=== PATIENT | male | born 1980 | race Two or more races ===

== ENCOUNTER 2017-05-10 16:15 | Emergency (ER) | payer MEDICARE, MEDICAID ==
[~2017-05-10] VITALS: Ht 182.9 cm; Wt 107.0 kg
[~2017-05-10 16:15] MED LIST: 5HTP PO; ADV50500 IH; ALBU8.5H4 IH; CYCL-1 PO; HYDR-569 PO
[2017-05-10 17:15] LABS: BASOPHILS % (AUTO) 0.3 % (0-1); EOSINOPHILS # (AUTO) 0.5 X10'3 (0-0.9); EOSINOPHILS % (AUTO) 5.9 % (0-6); HEMATOCRIT 41.4 % (42.0-52.0); HEMOGLOBIN 14.1 g/dl (14.0-17.9); LYMPHOCYTES # (AUTO) 3.1 X10'3 (1.1-4.8); LYMPHOCYTES % (AUTO) 40.6 % (21-51); MEAN CORPUSCULAR HEMOGLOBIN 30.5 PG (27.0-31.0); MEAN CORPUSCULAR VOLUME 89.9 FL (78-98); MEAN PLATELET VOLUME 7.9 FL (7.4-10.4); MONOCYTES # (AUTO) 0.8 X10'3 (0-0.9); MONOCYTES % (AUTO) 10.5 % (2-12); NEUTROPHILS # (AUTO) 3.3 X10'3 (1.8-7.7); NEUTROPHILS % (AUTO) 42.7 % (42-75); PLATELET COUNT 269 X10'3 (140-440); RED BLOOD COUNT 4.61 X10'6 (4.70-6.10); RED CELL DISTRIBUTION WIDTH 14.1 % (11.5-14.5); WHITE BLOOD COUNT 7.7 X10'3 (4.5-11.0)
[2017-05-10] MEDS ORDERED: DIVA500T7 PO (17:22)
[2017-05-10] MEDS ORDERED: GABA-532 PO (17:22)
[2017-05-10] MEDS ORDERED: LEVO100T9 PO (17:22)
[2017-05-10] MEDS ORDERED: CHOL200013 PO (17:22)
[2017-05-10] MEDS ORDERED: ESCI10TA54 PO (17:22)
[2017-05-10 17:29] LABS: ALANINE AMINOTRANSFERASE 45 U/L (12-78); ALBUMIN 3.7 G/DL (3.4-5.0); ALBUMIN/GLOBULIN RATIO 1.1 (1.1-1.5); ALKALINE PHOSPHATASE 66 IU/L (46-116); ANION GAP 8 (8-16); ASPARTATE AMINO TRANSFERASE 10 U/L (10-37); BILIRUBIN,TOTAL 0.3 MG/DL (0.1-1.0); BLOOD UREA NITROGEN 18 MG/DL (7-18); BUN/CREATININE RATIO 13.3 (5.4-32.0); CALCIUM 8.6 MG/DL (8.5-10.1); CHLORIDE 107 MMOL/L (99-107); CREATININE 1.35 MG/DL (0.60-1.10); GLUCOSE 101 MG/DL (70-104); SODIUM 143 MMOL/L (135-145); TOTAL CARBON DIOXIDE 28.2 MMOL/L (24-32); TOTAL PROTEIN 7.1 G/DL (6.4-8.2); eGFR 59 ML/MIN
[2017-05-10 17:34] LABS: CLARITY,URINE Clear (Clear); COLOR,URINE Yellow (Yellow); GLUCOSE, URINE Negative (Neg); KETONES,URINE Negative (Neg); LEUKOCYTE ESTERASE ,URINE Negative (Neg); NITRITES, URINE Negative (Neg); OCCULT BLOOD,URINE Negative (Neg); PH,URINE 5.5 (4.8-8.0); PROTEIN,URINE Negative (Neg)
[2017-05-10 17:39] LABS: ETHANOL < 0.010 GM/DL (0.0-0.010)
[2017-05-10 17:42] LABS: UA COLLECTION TYPE CLN CATCH MIDSTREAM
[2017-05-10 17:44] LABS: URINE AMPHETAMINE SCREEN NEGATIVE (Neg); URINE BARBITUATE SCREEN NEGATIVE (Neg); URINE BENZODIAZEPINES SCREEN NEGATIVE (Neg); URINE CANNABINOID SCREEN NEGATIVE (Neg); URINE COCAINE SCREEN NEGATIVE (Neg); URINE METHADONE SCREEN NEGATIVE (Neg); URINE OPIATE SCREEN NEGATIVE (Neg); URINE PHENCYCLIDINE SCREEN NEGATIVE (Neg)
[2017-05-10 17:47] LABS: ACETAMINOPHEN < 2.0 UG/ML (10-30)
[2017-05-10 17:51] VITALS: BP 122/73
== END 2017-05-10 21:59 ==
LOC: ER 16:15
DX: R45.851 Suicidal ideations (principal); E03.9 Hypothyroidism, unspecified; R10.84 Generalized abdominal pain; F31.9 Bipolar disorder, unspecified; J45.909 Unspecified asthma, uncomplicated; Z79.899 Other long term (current) drug therapy; Z88.1 Allergy status to other antibiotic agents; Z91.012 Allergy to eggs; Z91.018 Allergy to other foods
CPT/HCPCS: 36415; 80053; 80305; 80320; 80329; 81003; 84443; 85025; 99285

== ENCOUNTER 2017-05-10 20:40 | Inpatient (IN) | payer MEDICARE, MEDICAID ==
[~2017-05-10] VITALS: Ht 182.9 cm; Wt 104.9 kg
[~2017-05-10 20:40] MED LIST changes: +CHOL200013 PO; +DIVA500T7 PO; +ESCI10TA54 PO; +GABA-532 PO; +LEVO100T9 PO
[2017-05-10] MEDS ORDERED: divalproex sodium 500mg tablet.DR PO ONE (22:15)
[2017-05-10] MEDS ORDERED: gabapentin 300mg capsule PO ONE (22:15)
[2017-05-10] MEDS ORDERED: citalopram 20mg tablet PO ONE (22:15)
[2017-05-10 22:20] VITALS: BP 110/70
[2017-05-10] MEDS ORDERED: vitamin D (cholecalciferol) 1,000 unit tablet PO ONE (22:20)
[2017-05-10] MEDS: albuterol 2.5 MG/3 ML nebule NEB PRN (23:42)
[2017-05-11] MEDS ORDERED: acetaminophen 325mg tablet PO PRN (02:05)
[2017-05-11] MEDS ORDERED: mag hydrox/Alum hydrox/simeth 30ml oral suspension PO PRN (02:05)
[2017-05-11] MEDS ORDERED: magnesium hydroxide 30ml (MOM) UD suspension PO PRN (02:10)
[2017-05-11 08:00] VITALS: BP 93/54
[2017-05-11] MEDS: levoTHYROXINE 100mcg tablet PO SCH (08:04)
[2017-05-11] MEDS: gabapentin 300mg capsule PO SCH ×3 (08:05→20:44)
[2017-05-11] MEDS: vitamin D (cholecalciferol) 1,000 unit tablet PO SCH (08:05)
[2017-05-11] MEDS: citalopram 20mg tablet PO SCH (08:05)
[2017-05-11 09:14] LABS: CHOL/HDL RATIO 3.1 (0.00-4.99); CHOLESTEROL 157 MG/DL (0-200); HDL CHOLESTEROL 51 MG/DL (35-60); LDL CHOLESTEROL 96 MG/DL (50-100); TRIGLYCERIDES 99 MG/DL (20-135)
[2017-05-11 09:17] LABS: HEMOGLOBIN A1C 5.9 % (4.5-6.2)
[2017-05-11 20:00] VITALS: BP 113/75
[2017-05-11 20:50] LABS: BASOPHILS % (AUTO) 0.4 % (0-1); EOSINOPHILS # (AUTO) 0.4 X10'3 (0-0.9); HEMATOCRIT 41.4 % (42.0-52.0); HEMOGLOBIN 14.2 g/dl (14.0-17.9); LYMPHOCYTES # (AUTO) 2.6 X10'3 (1.1-4.8); LYMPHOCYTES % (AUTO) 35.3 % (21-51); MEAN CORPUSCULAR HEMOGLOBIN 30.9 PG (27.0-31.0); MEAN CORPUSCULAR HGB CONC 34.3 % (33.0-36.5); MEAN PLATELET VOLUME 8.2 FL (7.4-10.4); MONOCYTES # (AUTO) 0.7 X10'3 (0-0.9); MONOCYTES % (AUTO) 9.6 % (2-12); NEUTROPHILS # (AUTO) 3.7 X10'3 (1.8-7.7); NEUTROPHILS % (AUTO) 49.7 % (42-75); PLATELET COUNT 252 X10'3 (140-440); RED CELL DISTRIBUTION WIDTH 13.5 % (11.5-14.5); WHITE BLOOD COUNT 7.4 X10'3 (4.5-11.0)
[2017-05-11] MEDS ORDERED: divalproex sodium 500mg tablet.DR PO SCH (21:00)
[2017-05-11 21:08] LABS: ALANINE AMINOTRANSFERASE 51 U/L (12-78); ALBUMIN 3.8 G/DL (3.4-5.0); ALBUMIN/GLOBULIN RATIO 1.1 (1.1-1.5); ALKALINE PHOSPHATASE 58 IU/L (46-116); ANION GAP 8 (8-16); ASPARTATE AMINO TRANSFERASE 22 U/L (10-37); BILIRUBIN,TOTAL 0.3 MG/DL (0.1-1.0); BLOOD UREA NITROGEN 20 MG/DL (7-18); BUN/CREATININE RATIO 13.4 (5.4-32.0); CALCIUM 9.6 MG/DL (8.5-10.1); CHLORIDE 104 MMOL/L (99-107); CREATININE 1.49 MG/DL (0.60-1.10); GLUCOSE 95 MG/DL (70-104); POTASSIUM 3.8 MMOL/L (3.5-5.1); SODIUM 142 MMOL/L (135-145); TOTAL CARBON DIOXIDE 30.5 MMOL/L (24-32); TOTAL PROTEIN 7.3 G/DL (6.4-8.2); eGFR 53 ML/MIN
[2017-05-12 07:34] VITALS: BP 117/63
[2017-05-12] MEDS: levoTHYROXINE 100mcg tablet PO SCH (07:52)
[2017-05-12] MEDS: citalopram 20mg tablet PO SCH (08:28)
[2017-05-12] MEDS: gabapentin 300mg capsule PO SCH ×3 (08:28→21:01)
[2017-05-12] MEDS: vitamin D (cholecalciferol) 1,000 unit tablet PO SCH (08:28)
[2017-05-12 19:52] VITALS: BP 119/78
[2017-05-12] MEDS: divalproex sodium 500mg tablet.DR PO SCH (21:01)
[2017-05-12] MEDS: traZODone 50mg tablet PO PRN (21:05)
[2017-05-13 07:20] VITALS: BP 96/51
[2017-05-13] MEDS: levoTHYROXINE 100mcg tablet PO SCH (07:54)
[2017-05-13] MEDS: vitamin D (cholecalciferol) 1,000 unit tablet PO SCH (08:15)
[2017-05-13] MEDS: gabapentin 300mg capsule PO SCH ×3 (08:15→21:17)
[2017-05-13] MEDS: citalopram 20mg tablet PO SCH (08:15)
[2017-05-13 18:55] VITALS: BP 113/73
[2017-05-13] MEDS ORDERED: EPI PEN IM PRN (19:00)
[2017-05-13 19:01] VITALS: BP 113/73
[2017-05-13] MEDS: traZODone 50mg tablet PO PRN (21:17)
[2017-05-13] MEDS: divalproex sodium 500mg tablet.DR PO SCH (21:17)
[2017-05-14] MEDS: levoTHYROXINE 100mcg tablet PO SCH (07:46)
[2017-05-14 08:00] VITALS: BP 110/56
[2017-05-14] MEDS: vitamin D (cholecalciferol) 1,000 unit tablet PO SCH (08:22)
[2017-05-14] MEDS: gabapentin 300mg capsule PO SCH ×3 (08:22→21:04)
[2017-05-14] MEDS: citalopram 20mg tablet PO SCH (08:22)
[2017-05-14 19:07] VITALS: BP 124/68
[2017-05-14] MEDS: divalproex sodium 500mg tablet.DR PO SCH (21:04)
[2017-05-14] MEDS: traZODone 50mg tablet PO PRN (21:04)
[2017-05-15 07:26] VITALS: BP 98/52
[2017-05-15] MEDS: levoTHYROXINE 100mcg tablet PO SCH (08:03)
[2017-05-15] MEDS: vitamin D (cholecalciferol) 1,000 unit tablet PO SCH (08:03)
[2017-05-15] MEDS: gabapentin 300mg capsule PO SCH ×3 (08:03→20:55)
[2017-05-15] MEDS: citalopram 20mg tablet PO SCH (08:03)
[2017-05-15] MEDS: albuterol 2.5 MG/3 ML nebule NEB PRN ×2 (17:33→22:45)
[2017-05-15] MEDS ORDERED: traZODone 50mg tablet PO SCH (19:00)
[2017-05-15 19:34] VITALS: BP 123/76
[2017-05-15] MEDS: divalproex sodium 500mg tablet.DR PO SCH (20:55)
[2017-05-16] MEDS: albuterol 2.5 MG/3 ML nebule NEB PRN (06:27)
[2017-05-16 07:14] VITALS: BP 131/71
[2017-05-16] MEDS: levoTHYROXINE 100mcg tablet PO SCH (08:07)
[2017-05-16] MEDS: vitamin D (cholecalciferol) 1,000 unit tablet PO SCH (08:24)
[2017-05-16] MEDS: citalopram 20mg tablet PO SCH (08:24)
[2017-05-16] MEDS: gabapentin 300mg capsule PO SCH ×2 (08:25→13:27)
[2017-05-16] MEDS ORDERED: DIVA500T2 PO (12:41)
[2017-05-16] MEDS ORDERED: TRAZ-143 PO (12:41)
[2017-05-16] MEDS ORDERED: CITA20TA11 PO (12:41)
== END 2017-05-16 15:30 | disposition home or self-care (01) | DRG 885 ==
LOC: ADULT MH 20:40
PROVIDERS: ADMIT Psychiatry & Neurology Psychiatry; ATTEND Psychiatry & Neurology Psychiatry
DX: F33.2 Major depressive disorder, recurrent severe without psychotic features (principal); R45.851 Suicidal ideations; E03.9 Hypothyroidism, unspecified; J45.909 Unspecified asthma, uncomplicated; F60.9 Personality disorder, unspecified; R10.9 Unspecified abdominal pain; F41.9 Anxiety disorder, unspecified; Z88.8 Allergy status to other drugs, medicaments and biological substances; Z91.018 Allergy to other foods; Z88.1 Allergy status to other antibiotic agents; Z91.012 Allergy to eggs; Z82.5 Family history of asthma and other chronic lower respiratory diseases
CPT/HCPCS: 36415; 80053; 80061; 83036; 85025; 87070; 94640; 94760

== ENCOUNTER 2017-08-13 20:39 | Emergency (ER) | payer MEDICARE, MEDICAID ==
[~2017-08-13] VITALS: Ht 182.9 cm; Wt 112.9 kg
[~2017-08-13 20:39] MED LIST changes: -5HTP PO; -ADV50500 IH; +CITA20TA11 PO; -CYCL-1 PO; +DIVA500T2 PO; -DIVA500T7 PO; -ESCI10TA54 PO; -HYDR-569 PO; +TRAZ-143 PO
[2017-08-13 20:42] VITALS: BP 119/77
[2017-08-13] MEDS ORDERED: methylPREDNISolone sod succ 125mg/2ml vial IV ONE (21:15)
[2017-08-13] MEDS ORDERED: albuterol 2.5 MG/3 ML nebule CONTNEB PRN (21:15)
[2017-08-13] MEDS ORDERED: magnesium 2GM in 50ml NS 50 ML IV ONE (21:15)
== END 2017-08-13 22:27 | disposition home or self-care (01) ==
LOC: ER 20:39
DX: J45.901 Unspecified asthma with (acute) exacerbation (principal); G89.29 Other chronic pain; E03.9 Hypothyroidism, unspecified; Z88.1 Allergy status to other antibiotic agents; Z91.011 Allergy to milk products; Z91.018 Allergy to other foods; Z79.899 Other long term (current) drug therapy
CPT/HCPCS: 94644; 94760; 96365; 99291; J2930; J3475

== ENCOUNTER 2018-08-23 19:42 | Emergency (ER) | payer MEDICARE, MEDICAID ==
[~2018-08-23] VITALS: Ht 182.9 cm; Wt 85.0 kg
[~2018-08-23 19:42] MED LIST changes: -CITA20TA11 PO; +CITA20TA28 PO; -TRAZ-143 PO; +TRAZ-218 PO
[2018-08-23 19:47] VITALS: BP 149/80
== END 2018-08-23 20:48 | disposition left against medical advice (07) ==
LOC: ER 19:42
DX: T17.928A Food in respiratory tract, part unspecified causing other injury, initial encounter (principal); R05 Cough; Z53.21 Procedure and treatment not carried out due to patient leaving prior to being seen by health care provider; X58.XXXA Exposure to other specified factors, initial encounter; Y93.89 Activity, other specified; Y92.89 Other specified places as the place of occurrence of the external cause; Y99.8 Other external cause status

== ENCOUNTER 2021-10-17 07:31 | Emergency (ER) | payer MEDICARE, MEDICAID ==
[~2021-10-17] VITALS: Ht 182.9 cm; Wt 106.5 kg
[~2021-10-17 07:31] MED LIST changes: -TRAZ-218 PO; +TRAZ-251 PO
[2021-10-17] MEDS ORDERED: ipratropium/albuterol 3ml nebule NEB ONE ×3 (08:15→12:05)
[2021-10-17] MEDS ORDERED: methylPREDNISolone sod succ 125mg/2ml vial IM ONE (08:15)
--- NOTE | 2021-10-17 08:24 | NUR ---
rt at bedside.
--- NOTE | 2021-10-17 09:51 | NUR ---
rt at bedside.
--- NOTE | 2021-10-17 10:19 | NUR ---
dr villareal at bedside talking to pt .
[2021-10-17 11:55] VITALS: BP 130/82
[2021-10-17] MEDS ORDERED: AZIT250T29 PO (12:08)
[2021-10-17] MEDS ORDERED: PRED20TA PO (12:08)
--- NOTE | 2021-10-17 12:48 | NUR ---
rt is busy with intubation in icu that is why not here to five breathing tx to the pt .
== END 2021-10-17 14:02 | disposition home or self-care (01) ==
LOC: ER 07:31
DX: J45.901 Unspecified asthma with (acute) exacerbation (principal); Z20.822 Contact with and (suspected) exposure to COVID-19; E03.9 Hypothyroidism, unspecified; G89.29 Other chronic pain; Z79.899 Other long term (current) drug therapy; Z88.1 Allergy status to other antibiotic agents
CPT/HCPCS: 71045; 87635; 94640; 96372; 99285; C9803; J2930; 94760

== ENCOUNTER 2022-10-24 04:47 | Emergency (ER) | payer MEDICARE, MEDICAID ==
[~2022-10-24] VITALS: Ht 182.9 cm; Wt 111.2 kg
[2022-10-24] MEDS ORDERED: albuterol 2.5 MG/3 ML nebule CONTNEB PRN ×2 (05:15→05:40)
[2022-10-24] MEDS ORDERED: ipratropium 0.5 MG/2.5ML nebule IH ONE ×2 (05:15→05:40)
[2022-10-24] MEDS ORDERED: normal saline 1000ML IV soln IVB ONE (05:25)
[2022-10-24] MEDS ORDERED: azithromycin 250mg tablet PO ONE (05:25)
[2022-10-24] MEDS ORDERED: methylPREDNISolone sod succ 125mg/2ml vial IV ONE (05:25)
[2022-10-24 07:41] VITALS: BP 126/69
[2022-10-24 07:43] LABS: BASOPHILS % (AUTO) 0.2 % (0-1); EOSINOPHILS # (AUTO) 0.2 X10'3 (0-0.9); EOSINOPHILS % (AUTO) 2.4 % (0-6); HEMATOCRIT 42.5 % (42.0-52.0); HEMOGLOBIN 14.3 g/dl (14.0-17.9); LYMPHOCYTES # (AUTO) 1.2 X10'3 (1.1-4.8); LYMPHOCYTES % (AUTO) 19.7 % (21-51); MEAN CORPUSCULAR HEMOGLOBIN 30.3 PG (27.0-31.0); MEAN CORPUSCULAR HGB CONC 33.6 g/dL (33.0-36.5); MEAN PLATELET VOLUME 7.5 FL (7.4-10.4); MONOCYTES # (AUTO) 0.4 X10'3 (0-0.9); MONOCYTES % (AUTO) 6.9 % (2-12); NEUTROPHILS # (AUTO) 4.5 X10'3 (1.8-7.7); NEUTROPHILS % (AUTO) 70.8 % (42-75); PLATELET COUNT 204 X10'3 (140-440); RED BLOOD COUNT 4.72 X10'6 (4.70-6.10); RED CELL DISTRIBUTION WIDTH 13.8 % (11.5-14.5); WHITE BLOOD COUNT 6.3 X10'3 (4.5-11.0)
[2022-10-24 08:07] LABS: ANION GAP 11 (8-16); BLOOD UREA NITROGEN 20 MG/DL (7-18); BUN/CREATININE RATIO 14.8 (10.0-20.0); CALCIUM 8.5 MG/DL (8.5-10.1); CHLORIDE 106 MMOL/L (99-107); CREATININE 1.35 MG/DL (0.60-1.10); GLUCOSE 117 MG/DL (70-104); POTASSIUM 3.8 MMOL/L (3.5-5.1); SODIUM 139 MMOL/L (135-145); eGFR 57 ML/MIN
[2022-10-24 08:08] LABS: ALANINE AMINOTRANSFERASE 68 U/L (12-78); ALBUMIN 3.8 G/DL (3.4-5.0); ALBUMIN/GLOBULIN RATIO 1.3 (1.1-1.5); ALKALINE PHOSPHATASE 67 IU/L (46-116); ASPARTATE AMINO TRANSFERASE 29 U/L (10-37); BILIRUBIN,TOTAL 0.4 MG/DL (0.1-1.0); TOTAL PROTEIN 6.8 G/DL (6.4-8.2)
[2022-10-24] MEDS ORDERED: AZIT-164 PO (08:11)
[2022-10-24] MEDS ORDERED: PRED20TA PO (08:11)
== END 2022-10-24 08:22 | disposition home or self-care (01) ==
LOC: ER 04:48
DX: J45.901 Unspecified asthma with (acute) exacerbation (principal); E03.9 Hypothyroidism, unspecified; F31.9 Bipolar disorder, unspecified; Z88.8 Allergy status to other drugs, medicaments and biological substances; Z91.018 Allergy to other foods; Z91.041 Radiographic dye allergy status
CPT/HCPCS: 36415; 71045; 80053; 83880; 84484; 85025; 93005; 94640; 94644; 96361; 96374; 99285; J2930; J7030; A7015

== ENCOUNTER 2024-01-05 17:24 | Emergency (ER) | payer MEDICAID, MEDICARE ==
[~2024-01-05] VITALS: Ht 182.9 cm; Wt 80.0 kg
[2024-01-05 17:29] VITALS: BP 138/87; PULSE 66; TEMP 98.1; O2SAT 97
[2024-01-05] MEDS ORDERED: TRAM50TA2 PO (17:50)
[2024-01-05] MEDS ORDERED: CLIN-97 PO (17:50)
[2024-01-05 17:57] VITALS: RESP 18
== END 2024-01-05 17:59 | disposition home or self-care (01) ==
LOC: ER 17:24
DX: K08.89 Other specified disorders of teeth and supporting structures (principal); J45.909 Unspecified asthma, uncomplicated; E03.9 Hypothyroidism, unspecified; G89.29 Other chronic pain; F32.A Depression, unspecified; Z91.018 Allergy to other foods; Z79.899 Other long term (current) drug therapy; Z98.890 Other specified postprocedural states
CPT/HCPCS: 99283